=== PATIENT | female | born 1985 | race Two or more races ===

== ENCOUNTER 2019-04-01 13:23 | Emergency (ER) | payer OTHER ==
[~2019-04-01] VITALS: Ht 157.5 cm; Wt 81.6 kg
[2019-04-01] MEDS ORDERED: CLARITIN10 MG PO (14:43)
[2019-04-01] MEDS ORDERED: TUSNEL LIQUID178 ML PO (14:43)
== END 2019-04-01 15:20 | disposition home or self-care (01) ==
LOC: ER 13:23
DX: R05 Cough (principal)